=== PATIENT | male | born 1980 | race Two or more races ===

== ENCOUNTER 2021-01-10 12:34 | Inpatient (IN) | payer MEDICAID, OTHER ==
[~2021-01-10] VITALS: Ht 172.7 cm; Wt 98.8 kg
[2021-01-10] MEDS ORDERED: AZITHROMYCIN 500MG/ 250ML 250 ML IV ONE (12:45)
[2021-01-10] MEDS ORDERED: ASCORBIC ACID 500 MG TAB PO ONE (12:45)
[2021-01-10] MEDS ORDERED: ZINC SULFATE 220mg CAP or TAB PO ONE (12:45)
[2021-01-10] MEDS ORDERED: CHOLECALCIFEROL (VITD3) 2,000 UNIT CAP/TAB PO ONE (12:45)
[2021-01-10] MEDS ORDERED: methylPREDNISolone SOD SUCC 125 MG/2 ML VL IV ONE (12:45)
[2021-01-10 13:36] LABS: Basophils # (auto) 0 10 ^3/uL (0-0.2); Basophils % (auto) 0.2 % (0.0-2.0); Eosinophils # (auto) 0 10 ^3/uL (0-0.8); Hematocrit 41.5 % (41.0-53.0); Hemoglobin 14.9 g/dL (13.5-17.5); Lymphocytes # (auto) 0.7 10 ^3/uL (0.4-5.4); Lymphocytes % (auto) 7.7 % (10.0-50.0); Mean Corpuscular Hemoglobin 32.2 pg (28.0-32.0); Mean Corpuscular Volume 89.5 fL (80.0-100.0); Monocytes # (auto) 0.4 10 ^3/uL (0-1.3); Monocytes % (auto) 4.2 % (0.0-12.0); Neutrophils # (auto) 7.5 10 ^3/uL (1.6-8.6); Neutrophils % (auto) 87.9 % (37.0-80.0); Nucleated Red Blood Cells % 0.1 %; Red Blood Cells 4.64 10^6/uL (4.5-5.90); Red Cell Distribution Width 12.5 % (11.8-14.3); White Blood Cell 8.5 10^3/uL (4.4-10.8)
[2021-01-10 14:00] LABS: Anion Gap 9 (5-15); Blood Urea Nitrogen 11 mg/dL (7-18); Carbon Dioxide 24 mmol/L (21-32); Chloride 102 mmol/L (98-107); Glucose 116 mg/dL (74-106); Potassium 4.2 mmol/L (3.5-5.1); Sodium 135 mmol/L (136-145)
[2021-01-10 14:11] LABS: Alanine Aminotransferase 129 U/L (16-61); Albumin 3.1 g/dL (3.4-5.0); Alkaline Phosphatase 76 U/L (45-117); Aspartate Aminotransferase 140 U/L (15-37); Bilirubin, Total 1.1 mg/dL (0.2-1.0); GFR African American 117 mL/min; GFR Non-African American 96 mL/min; Total Protein 8.5 g/dL (6.4-8.2)
[2021-01-10] MEDS ORDERED: REMDESIVIR PER PHARMACY 0 ML IV SCH (15:00)
[2021-01-10] MEDS ORDERED: HYDROcodone-ACET 5/325MG TAB PO PRN (15:00)
[2021-01-10] MEDS ORDERED: ACETAMINOPHEN 500 MG TAB PO PRN (15:00)
[2021-01-10] MEDS ORDERED: MORPHINE SULFATE INJECTION 2 MG/2 ML SYRG IV PRN ×2 (15:00)
[2021-01-10] MEDS ORDERED: NITROGLYCERIN 0.4 MG SL TAB SL PRN (15:00)
[2021-01-10] MEDS ORDERED: DIPHENOXYLATE W/ATROPINE 2.5 MG TAB PO PRN (15:00)
[2021-01-10] MEDS ORDERED: ONDANSETRON HCL 4 MG/2 ML VIAL IV PRN (15:00)
[2021-01-10] MEDS: PROMETHAZINE W/CODEINE 5 ML ORAL SYRUP PO PRN (16:21)
[2021-01-10] MEDS ORDERED: REMDESIVIR 200 MG in NS 210ml LOADING DOSE ADULT IV ONE (17:30)
[2021-01-10 20:50] VITALS: BP 123/58
[2021-01-10] MEDS: ALBUTEROL SULF HFA 90MCG INH 200DOSE IN PRN (20:50)
[2021-01-10] MEDS: BUDESONIDE (INHALATION) 180 MCG IH IN SCH (20:50)
[2021-01-10] MEDS: ENOXAPARIN SOD 40 MG/0.4 ML SYRINGE SC SCH (22:16)
[2021-01-11] VITALS (8 sets, daily range): BP systolic 98–130; BP diastolic 53–82
[2021-01-11] MEDS: PROMETHAZINE W/CODEINE 5 ML ORAL SYRUP PO PRN (04:16)
[2021-01-11 05:00] LABS: Potassium 4.2 mmol/L (3.5-5.1)
[2021-01-11 05:12] LABS: Albumin 2.7 g/dL (3.4-5.0); BUN/Creatinine Ratio 22.2; Bilirubin, Total 0.8 mg/dL (0.2-1.0); Total Protein 7.6 g/dL (6.4-8.2)
[2021-01-11] MEDS: BUDESONIDE (INHALATION) 180 MCG IH IN SCH ×2 (06:47→22:26)
[2021-01-11] MEDS: ALBUTEROL SULF HFA 90MCG INH 200DOSE IN PRN ×2 (06:47→22:26)
[2021-01-11] MEDS ORDERED: IVERMECTIN 3 MG TAB PO SCH (10:00)
[2021-01-11] MEDS: AZITHROMYCIN 500MG/ 250ML 250 ML IV SCH (10:02)
[2021-01-11] MEDS: DexAMETHasone SOD PHOS 10MG/1ML VIAL INJ IV SCH (10:02)
[2021-01-11] MEDS: ZINC SULFATE 220mg CAP or TAB PO SCH (10:02)
[2021-01-11] MEDS: ENOXAPARIN SOD 40 MG/0.4 ML SYRINGE SC SCH (10:03)
[2021-01-11] MEDS: ASCORBIC ACID 1,000 MG TAB PO SCH (10:03)
[2021-01-11] MEDS: CHOLECALCIFEROL (VITD3) 2,000 UNIT CAP/TAB PO SCH (10:03)
[2021-01-11] MEDS ORDERED: FUROSEMIDE 20 MG/2 ML VIAL IV ONE (10:30)
[2021-01-11] MEDS ORDERED: cefTRIAXone 1GM/50ML D5W 50 ML IV ONE (10:30)
[2021-01-11] MEDS: TOCILIZUMAB 400 MG in SODIUM CHL 0.9% 80 ML IV ONE ×2 (12:09→12:12)
[2021-01-11] MEDS ORDERED: TOCILIZUMAB 400 MG in SODIUM CHL 0.9% 80 ML IV ONE (13:00)
[2021-01-11] MEDS: REMDESIVIR 100mg 100 MG in SODIUM CHL 0.9% 230 ML IV SCH (15:10)
[2021-01-11] MEDS: ENOXAPARIN SOD 60 MG/0.6 ML SYRINGE SC SCH (22:05)
[2021-01-12] VITALS (10 sets, daily range): BP systolic 114–136; BP diastolic 69–80
[2021-01-12] MEDS: ALBUTEROL SULF HFA 90MCG INH 200DOSE IN PRN ×2 (06:05→22:59)
[2021-01-12] MEDS: BUDESONIDE (INHALATION) 180 MCG IH IN SCH ×2 (06:06→22:59)
[2021-01-12 06:48] LABS: Urine Bacteria NONE SEEN /hpf (None Seen); Urine Blood Negative /uL (Negative); Urine Mucus FEW (None Seen); Urine Specific Gravity 1.031 (1.001-1.035); Urine WBC 1 /hpf (0 - 3)
[2021-01-12] MEDS ORDERED: TOCILIZUMAB 400 MG in SODIUM CHL 0.9% 80 ML IV ONE (08:00)
[2021-01-12] MEDS: DexAMETHasone SOD PHOS 10MG/1ML VIAL INJ IV SCH (10:21)
[2021-01-12] MEDS: cefTRIAXone 1GM/50ML D5W 50 ML IV SCH (10:21)
[2021-01-12] MEDS: FUROSEMIDE 20 MG/2 ML VIAL IV SCH (10:23)
[2021-01-12] MEDS: ZINC SULFATE 220mg CAP or TAB PO SCH (10:24)
[2021-01-12] MEDS: ASCORBIC ACID 1,000 MG TAB PO SCH (10:25)
[2021-01-12] MEDS: ENOXAPARIN SOD 60 MG/0.6 ML SYRINGE SC SCH ×2 (10:25→21:09)
[2021-01-12] MEDS: CHOLECALCIFEROL (VITD3) 2,000 UNIT CAP/TAB PO SCH (10:25)
[2021-01-12] MEDS: AZITHROMYCIN 500MG/ 250ML 250 ML IV SCH (11:40)
[2021-01-12] MEDS: REMDESIVIR 100mg 100 MG in SODIUM CHL 0.9% 230 ML IV SCH (15:00)
[2021-01-12] MEDS ORDERED: POTASSIUM EFFERVESENT TAB 25 MEQ PO ONE (16:30)
[2021-01-13 05:00] VITALS: BP 110/70
[2021-01-13] MEDS: BUDESONIDE (INHALATION) 180 MCG IH IN SCH ×2 (06:20→22:00)
[2021-01-13] MEDS: ALBUTEROL SULF HFA 90MCG INH 200DOSE IN PRN ×2 (06:20→23:49)
[2021-01-13 07:05] LABS: Albumin 2.6 g/dL (3.4-5.0); BUN/Creatinine Ratio 26.3; Bilirubin, Total 0.6 mg/dL (0.2-1.0); Calcium 8.8 mg/dL (8.5-10.1)
[2021-01-13 09:00] VITALS: BP 108/63
[2021-01-13] MEDS: cefTRIAXone 1GM/50ML D5W 50 ML IV SCH (09:00)
[2021-01-13] MEDS: ASCORBIC ACID 1,000 MG TAB PO SCH (09:01)
[2021-01-13] MEDS: POTASSIUM EFFERVESENT TAB 25 MEQ PO SCH (09:01)
[2021-01-13] MEDS: ZINC SULFATE 220mg CAP or TAB PO SCH (09:02)
[2021-01-13] MEDS: ENOXAPARIN SOD 60 MG/0.6 ML SYRINGE SC SCH ×2 (09:02→21:28)
[2021-01-13] MEDS: CHOLECALCIFEROL (VITD3) 2,000 UNIT CAP/TAB PO SCH (09:02)
[2021-01-13] MEDS: AZITHROMYCIN 500MG/ 250ML 250 ML IV SCH (09:03)
[2021-01-13] MEDS: FUROSEMIDE 20 MG/2 ML VIAL IV SCH (09:04)
[2021-01-13] MEDS: DexAMETHasone SOD PHOS 10MG/1ML VIAL INJ IV SCH (09:04)
[2021-01-13 13:10] VITALS: BP 103/62
[2021-01-13] MEDS: REMDESIVIR 100mg 100 MG in SODIUM CHL 0.9% 230 ML IV SCH (15:17)
[2021-01-13 16:55] VITALS: BP 113/72
[2021-01-13] MEDS: PROMETHAZINE W/CODEINE 5 ML ORAL SYRUP PO PRN (19:57)
[2021-01-13 22:00] VITALS: BP 123/75
[2021-01-14 04:26] VITALS: BP 123/75
[2021-01-14 05:00] VITALS: BP 114/66
[2021-01-14] MEDS: ALBUTEROL SULF HFA 90MCG INH 200DOSE IN PRN ×3 (06:10→22:45)
[2021-01-14] MEDS: BUDESONIDE (INHALATION) 180 MCG IH IN SCH ×3 (06:10→22:44)
[2021-01-14 08:51] LABS: Potassium 4.2 mmol/L (3.5-5.1)
[2021-01-14 08:56] LABS: Albumin 2.6 g/dL (3.4-5.0); BUN/Creatinine Ratio 27.1; Calcium 8.6 mg/dL (8.5-10.1)
[2021-01-14 08:58] LABS: Bilirubin, Total 0.5 mg/dL (0.2-1.0); Total Protein 6.4 g/dL (6.4-8.2)
[2021-01-14 09:00] VITALS: BP 127/80
[2021-01-14] MEDS: PROMETHAZINE W/CODEINE 5 ML ORAL SYRUP PO PRN ×3 (10:15→23:08)
[2021-01-14] MEDS: DexAMETHasone SOD PHOS 10MG/1ML VIAL INJ IV SCH (10:46)
[2021-01-14] MEDS: cefTRIAXone 1GM/50ML D5W 50 ML IV SCH (10:46)
[2021-01-14] MEDS: FUROSEMIDE 20 MG/2 ML VIAL IV SCH (10:46)
[2021-01-14] MEDS: ZINC SULFATE 220mg CAP or TAB PO SCH (10:47)
[2021-01-14] MEDS: POTASSIUM EFFERVESENT TAB 25 MEQ PO SCH (10:47)
[2021-01-14] MEDS: ASCORBIC ACID 1,000 MG TAB PO SCH (10:47)
[2021-01-14] MEDS: CHOLECALCIFEROL (VITD3) 2,000 UNIT CAP/TAB PO SCH (10:48)
[2021-01-14] MEDS: AZITHROMYCIN 500MG/ 250ML 250 ML IV SCH (10:48)
[2021-01-14] MEDS: ENOXAPARIN SOD 60 MG/0.6 ML SYRINGE SC SCH ×2 (10:48→22:08)
[2021-01-14 13:12] VITALS: BP 99/65
[2021-01-14 17:05] VITALS: BP 110/68
[2021-01-14] MEDS: REMDESIVIR 100mg 100 MG in SODIUM CHL 0.9% 230 ML IV SCH (17:08)
[2021-01-14 22:09] VITALS: BP 110/68
[2021-01-15 05:00] VITALS: BP 112/68
[2021-01-15 05:01] LABS: Basophils # (auto) 0 10 ^3/uL (0-0.2); Basophils % (auto) 0.1 % (0.0-2.0); Eosinophils # (auto) 0.3 10 ^3/uL (0-0.8); Eosinophils % (auto) 3.6 % (0.0-7.0); Hematocrit 44.8 % (41.0-53.0); Hemoglobin 15.6 g/dL (13.5-17.5); Lymphocytes # (auto) 0.8 10 ^3/uL (0.4-5.4); Lymphocytes % (auto) 8.5 % (10.0-50.0); Mean Corpuscular Hemoglobin 31.6 pg (28.0-32.0); Mean Corpuscular Hgb Conc. 34.9 g/dL (32.0-36.0); Mean Corpuscular Volume 90.4 fL (80.0-100.0); Monocytes # (auto) 0.4 10 ^3/uL (0-1.3); Monocytes % (auto) 4.3 % (0.0-12.0); Neutrophils # (auto) 7.5 10 ^3/uL (1.6-8.6); Neutrophils % (auto) 83.5 % (37.0-80.0); Red Blood Cells 4.95 10^6/uL (4.5-5.90); Red Cell Distribution Width 12.5 % (11.8-14.3)
[2021-01-15] MEDS: PROMETHAZINE W/CODEINE 5 ML ORAL SYRUP PO PRN ×2 (05:08→17:05)
[2021-01-15 05:32] LABS: Potassium 4.8 mmol/L (3.5-5.1)
[2021-01-15 05:36] LABS: Calcium 8.7 mg/dL (8.5-10.1)
[2021-01-15] MEDS: ALBUTEROL SULF HFA 90MCG INH 200DOSE IN PRN (07:15)
[2021-01-15] MEDS: BUDESONIDE (INHALATION) 180 MCG IH IN SCH ×2 (07:15→19:04)
[2021-01-15 09:00] VITALS: BP 101/64
[2021-01-15] MEDS: DexAMETHasone SOD PHOS 10MG/1ML VIAL INJ IV SCH (09:32)
[2021-01-15] MEDS: cefTRIAXone 1GM/50ML D5W 50 ML IV SCH (09:32)
[2021-01-15] MEDS: POTASSIUM EFFERVESENT TAB 25 MEQ PO SCH (09:33)
[2021-01-15] MEDS: ASCORBIC ACID 1,000 MG TAB PO SCH (09:33)
[2021-01-15] MEDS: ZINC SULFATE 220mg CAP or TAB PO SCH (09:33)
[2021-01-15] MEDS: FUROSEMIDE 20 MG/2 ML VIAL IV SCH ×2 (09:33→18:33)
[2021-01-15] MEDS: CHOLECALCIFEROL (VITD3) 2,000 UNIT CAP/TAB PO SCH (09:33)
[2021-01-15] MEDS: ENOXAPARIN SOD 60 MG/0.6 ML SYRINGE SC SCH ×2 (09:34→22:25)
[2021-01-15 13:00] VITALS: BP 122/72
[2021-01-15 15:15] VITALS: BP 101/64
[2021-01-15 16:09] VITALS: BP 109/75
[2021-01-15] MEDS: PIPERACILLIN-TAZO 4.5GM 100 ML IV SCH (17:05)
[2021-01-15 22:00] VITALS: BP_SYST 116; BP_SYST 120; BP_DIAS 44; BP_DIAS 73
[2021-01-16] MEDS: ALBUTEROL SULF HFA 90MCG INH 200DOSE IN PRN ×4 (00:26→18:51)
[2021-01-16] MEDS: PIPERACILLIN-TAZO 4.5GM 100 ML IV SCH ×4 (00:28→21:30)
[2021-01-16 05:00] VITALS: BP 139/87
[2021-01-16] MEDS: FUROSEMIDE 20 MG/2 ML VIAL IV SCH ×2 (06:15→18:48)
[2021-01-16] MEDS: BUDESONIDE (INHALATION) 180 MCG IH IN SCH ×2 (07:28→18:51)
[2021-01-16] MEDS: PROMETHAZINE W/CODEINE 5 ML ORAL SYRUP PO PRN (07:34)
[2021-01-16 09:08] VITALS: BP 101/65
[2021-01-16] MEDS: DexAMETHasone SOD PHOS 10MG/1ML VIAL INJ IV SCH ×2 (10:45→21:25)
[2021-01-16] MEDS: POTASSIUM EFFERVESENT TAB 25 MEQ PO SCH (10:45)
[2021-01-16] MEDS: ASCORBIC ACID 1,000 MG TAB PO SCH (10:45)
[2021-01-16] MEDS: CHOLECALCIFEROL (VITD3) 2,000 UNIT CAP/TAB PO SCH (10:45)
[2021-01-16] MEDS: ZINC SULFATE 220mg CAP or TAB PO SCH (10:45)
[2021-01-16 12:00] VITALS: BP 106/59
[2021-01-16] MEDS: ENOXAPARIN SOD 60 MG/0.6 ML SYRINGE SC SCH ×2 (12:00→21:25)
[2021-01-16 17:26] VITALS: BP 119/70
[2021-01-16 22:00] VITALS: BP 108/68
[2021-01-17 00:50] VITALS: BP 108/68
[2021-01-17] MEDS: PROMETHAZINE W/CODEINE 5 ML ORAL SYRUP PO PRN (03:43)
[2021-01-17] MEDS: PIPERACILLIN-TAZO 4.5GM 100 ML IV SCH ×3 (06:27→21:29)
[2021-01-17] MEDS: FUROSEMIDE 20 MG/2 ML VIAL IV SCH ×2 (06:28→18:10)
[2021-01-17] MEDS: ALBUTEROL SULF HFA 90MCG INH 200DOSE IN PRN ×2 (06:46→22:20)
[2021-01-17] MEDS: BUDESONIDE (INHALATION) 180 MCG IH IN SCH ×2 (06:47→22:20)
[2021-01-17 08:48] LABS: BUN/Creatinine Ratio 21.3; Calcium 9.1 mg/dL (8.5-10.1); Potassium 4.2 mmol/L (3.5-5.1)
[2021-01-17 09:00] VITALS: BP 112/65
[2021-01-17] MEDS: ZINC SULFATE 220mg CAP or TAB PO SCH (10:45)
[2021-01-17] MEDS: ASCORBIC ACID 1,000 MG TAB PO SCH (10:45)
[2021-01-17] MEDS: CHOLECALCIFEROL (VITD3) 2,000 UNIT CAP/TAB PO SCH (10:45)
[2021-01-17] MEDS: ENOXAPARIN SOD 60 MG/0.6 ML SYRINGE SC SCH ×2 (10:45→21:25)
[2021-01-17] MEDS: DexAMETHasone SOD PHOS 10MG/1ML VIAL INJ IV SCH ×2 (10:45→21:29)
[2021-01-17] MEDS: POTASSIUM EFFERVESENT TAB 25 MEQ PO SCH (11:00)
[2021-01-17 12:00] VITALS: BP 113/82
[2021-01-17 17:00] VITALS: BP 115/71
[2021-01-17 22:00] VITALS: BP 113/74
[2021-01-18] MEDS: PROMETHAZINE W/CODEINE 5 ML ORAL SYRUP PO PRN ×3 (00:19→22:13)
[2021-01-18 05:00] VITALS: BP 112/67
[2021-01-18] MEDS: PIPERACILLIN-TAZO 4.5GM 100 ML IV SCH ×3 (05:29→22:12)
[2021-01-18] MEDS: FUROSEMIDE 20 MG/2 ML VIAL IV SCH ×2 (05:30→17:54)
[2021-01-18 06:37] VITALS: BP 112/67
[2021-01-18] MEDS: ALBUTEROL SULF HFA 90MCG INH 200DOSE IN PRN (06:37)
[2021-01-18] MEDS: BUDESONIDE (INHALATION) 180 MCG IH IN SCH ×2 (06:37→22:25)
[2021-01-18 09:00] VITALS: BP 121/75
[2021-01-18] MEDS: ZINC SULFATE 220mg CAP or TAB PO SCH (10:00)
[2021-01-18] MEDS: ENOXAPARIN SOD 60 MG/0.6 ML SYRINGE SC SCH ×2 (10:00→22:12)
[2021-01-18] MEDS: ASCORBIC ACID 1,000 MG TAB PO SCH (10:00)
[2021-01-18] MEDS: POTASSIUM EFFERVESENT TAB 25 MEQ PO SCH (10:00)
[2021-01-18] MEDS: DexAMETHasone SOD PHOS 10MG/1ML VIAL INJ IV SCH ×2 (10:00→22:12)
[2021-01-18] MEDS: CHOLECALCIFEROL (VITD3) 2,000 UNIT CAP/TAB PO SCH (10:00)
[2021-01-18 17:53] VITALS: BP 122/76
[2021-01-18 22:00] VITALS: BP 119/69
[2021-01-19 05:00] VITALS: BP 112/60
[2021-01-19] MEDS: PIPERACILLIN-TAZO 4.5GM 100 ML IV SCH (06:50)
[2021-01-19] MEDS: FUROSEMIDE 20 MG/2 ML VIAL IV SCH ×2 (06:50→17:45)
[2021-01-19] MEDS: ALBUTEROL SULF HFA 90MCG INH 200DOSE IN PRN ×2 (06:53→22:16)
[2021-01-19] MEDS: BUDESONIDE (INHALATION) 180 MCG IH IN SCH ×2 (06:54→22:16)
[2021-01-19 09:57] LABS: Potassium 4.1 mmol/L (3.5-5.1)
[2021-01-19] MEDS: ZINC SULFATE 220mg CAP or TAB PO SCH (10:09)
[2021-01-19] MEDS: ASCORBIC ACID 1,000 MG TAB PO SCH (10:09)
[2021-01-19] MEDS: DexAMETHasone SOD PHOS 10MG/1ML VIAL INJ IV SCH ×2 (10:09→22:22)
[2021-01-19] MEDS: POTASSIUM EFFERVESENT TAB 25 MEQ PO SCH (10:09)
[2021-01-19] MEDS: CHOLECALCIFEROL (VITD3) 2,000 UNIT CAP/TAB PO SCH (10:10)
[2021-01-19] MEDS: ENOXAPARIN SOD 60 MG/0.6 ML SYRINGE SC SCH ×2 (10:10→22:22)
[2021-01-19] MEDS: DOXYCYCLINE 100MG/250ML 250 ML IV SCH ×2 (13:10→22:22)
[2021-01-19 15:27] VITALS: BP 112/60
[2021-01-19 17:00] VITALS: BP 118/71
[2021-01-19 21:39] VITALS: BP 121/81
[2021-01-20] MEDS: FUROSEMIDE 20 MG/2 ML VIAL IV SCH (07:05)
[2021-01-20] MEDS: BUDESONIDE (INHALATION) 180 MCG IH IN SCH ×2 (07:10→22:00)
[2021-01-20] MEDS: ALBUTEROL SULF HFA 90MCG INH 200DOSE IN PRN (07:10)
[2021-01-20 09:00] VITALS: BP 116/71
[2021-01-20] MEDS: DexAMETHasone SOD PHOS 10MG/1ML VIAL INJ IV SCH (10:51)
[2021-01-20] MEDS: DOXYCYCLINE 100MG/250ML 250 ML IV SCH (10:52)
[2021-01-20] MEDS: ENOXAPARIN SOD 60 MG/0.6 ML SYRINGE SC SCH (10:52)
[2021-01-20] MEDS: CHOLECALCIFEROL (VITD3) 2,000 UNIT CAP/TAB PO SCH (10:52)
[2021-01-20] MEDS: ASCORBIC ACID 1,000 MG TAB PO SCH (10:52)
[2021-01-20] MEDS: ZINC SULFATE 220mg CAP or TAB PO SCH (10:52)
[2021-01-20] MEDS: POTASSIUM EFFERVESENT TAB 25 MEQ PO SCH (10:52)
[2021-01-20 13:00] VITALS: BP 108/71
[2021-01-20 17:00] VITALS: BP 111/74
[2021-01-20] MEDS: DOXYCYCLINE 100 MG TAB/CAP PO SCH (21:45)
[2021-01-20] MEDS: ENOXAPARIN SOD 40 MG/0.4 ML SYRINGE SC SCH (21:46)
[2021-01-20 22:00] VITALS: BP 105/64
[2021-01-20] MEDS: PROMETHAZINE W/CODEINE 5 ML ORAL SYRUP PO PRN (23:08)
[2021-01-21] MEDS: ALBUTEROL SULF HFA 90MCG INH 200DOSE IN PRN ×2 (01:31→07:35)
[2021-01-21 05:00] VITALS: BP 115/69
[2021-01-21] MEDS: PROMETHAZINE W/CODEINE 5 ML ORAL SYRUP PO PRN (05:20)
[2021-01-21] MEDS: BUDESONIDE (INHALATION) 180 MCG IH IN SCH (07:35)
[2021-01-21] MEDS: ZINC SULFATE 220mg CAP or TAB PO SCH (08:33)
[2021-01-21] MEDS: ENOXAPARIN SOD 40 MG/0.4 ML SYRINGE SC SCH (08:33)
[2021-01-21] MEDS: ASCORBIC ACID 1,000 MG TAB PO SCH (08:33)
[2021-01-21] MEDS: CHOLECALCIFEROL (VITD3) 2,000 UNIT CAP/TAB PO SCH (08:33)
[2021-01-21] MEDS: DOXYCYCLINE 100 MG TAB/CAP PO SCH (08:33)
[2021-01-21] MEDS: POTASSIUM EFFERVESENT TAB 25 MEQ PO SCH (08:34)
[2021-01-21 09:00] VITALS: BP 121/76
[2021-01-21] MEDS ORDERED: FUROSEMIDE 20 MG TAB PO SCH (10:00)
[2021-01-21] MEDS ORDERED: DexAMETHasone 4 MG TAB PO SCH (10:00)
[2021-01-21 13:00] VITALS: BP 103/77
== END 2021-01-21 14:17 | disposition home or self-care (01) | DRG 720 ==
LOC: ER 12:34 → TELE 14:58 → TELE-CENTR 01-12 00:19 → EAST 01-17 11:53 → TELE-E-ADS 01-17 12:00 → TELE-CENTR 01-18 13:00 → TELE-EAST 01-19 13:43
PROVIDERS: ADMIT Nurse Practitioner Acute Care; ATTEND Internal Medicine
PROC: XW033E5 Introduction of Remdesivir Anti-infective into Peripheral Vein, Percutaneous Approach, New Technology Group 5 (ICD-10-PCS; principal; 2021-01-10)
PROC: 5A0955A Assistance with Respiratory Ventilation, Greater than 96 Consecutive Hours, High Flow/Velocity Cannula (ICD-10-PCS; 2021-01-10)
PROC: XW033H5 Introduction of Tocilizumab into Peripheral Vein, Percutaneous Approach, New Technology Group 5 (ICD-10-PCS; 2021-01-11)
DX: A41.89 Other specified sepsis (principal); J96.01 Acute respiratory failure with hypoxia; J12.82 Pneumonia due to coronavirus disease 2019; U07.1 COVID-19; D68.59 Other primary thrombophilia; D89.839 Cytokine release syndrome, grade unspecified; R65.20 Severe sepsis without septic shock; R74.01 Elevation of levels of liver transaminase levels; E88.09 Other disorders of plasma-protein metabolism, not elsewhere classified; E66.9 Obesity, unspecified; Z79.82 Long term (current) use of aspirin; Z68.32 Body mass index [BMI] 32.0-32.9, adult; Z83.3 Family history of diabetes mellitus
CPT/HCPCS: 36415; 36600; 71045; 80048; 80053; 81001; 82306; 82728; 82805; 83036; 83605; 84484; 85025; 85379; 86141; 87040; 87426; 93005; 94640; 96365; 96375; 99291; G0378; J0696; J1100; J2543; J3490